=== PATIENT | male | born 1970 | race American Indian/Alaskan Native ===

== ENCOUNTER 2019-06-04 10:05 | Emergency (ER) | payer OTHER ==
[2019-06-04 10:14] VITALS: BP 137/79
[2019-06-04] MEDS ORDERED: KETOROLAC 60 MG/2 ML INJ IM ONE (11:52)
[2019-06-04] MEDS ORDERED: dexAMETHasone 20 MG/5 ML VIAL IM ONE (11:52)
--- NOTE | 2019-06-04 12:10 | Emergency Department Report ---
ED Back Pain/Injury HPI - General Chief Complaint: Back Pain/Injury Stated Complaint: SEVERE BACK PAIN Time Seen by Provider: 06/04/19 11:51 Source: patient Limitations: No Limitations - History of Present Illness Initial Comments: Mr. Correia is a 49 yo male with hx of severe lumbar ddd who presents with severe back pain. He had a bad injury in 2012. Since that time he was diagnosed with 3 herniated disks and facet arthropathy. He underwent laminectomy in 2013. He has been followed extensively by pain management physicians. He has underwent nerve blocks and epidural injections. He is currently being evaluated for a spinal stimulator. He is followed by pain physician in [facility]. He also has a new PCP at [facility] MD Zev Starr. He recently moved from [facility]. So he has recently restarted his medical treatment plan with new physicians. He moved from [place] to be close to his siblings. He was able to drive his car to the emergency department. The pain is worse with walking and certain movements. He denies bowel or bladder, ducts. He denies new leg weakness. One week ago he fell off a 4 foot ladder while performing housework. He fell and landed onto his back onto hard concrete. He did not have any new immediate pain at that time. More severe pain began several days ago. Complaint: back pain -: Gradual, days(s) (several) Similar Symptoms Previously: Yes Place: home Radiation: buttocks Severity: severe Severity scale (0 -10): 10 Quality: sharp, dull Consistency: constant Improves With: none Worsens With: movement, sitting upright, walking Context: fall Associated Symptoms: denies other symptoms - Related Data Previous Rx's Medication Instructions Recorded Last Taken Type Cyclobenzaprine [Flexeril] 10 mg PO TID PRN #15 tablet 06/04/19 Unknown Rx Ibuprofen [Motrin 800 MG tab] 800 mg PO Q8HR 5 Days #15 tablet 06/04/19 Unknown Rx Allergies Allergy/AdvReac Type Severity Reaction Status Date / Time No Known Allergies Allergy Unverified 06/04/19 10:10 ED Review of Systems ROS: Stated complaint: SEVERE BACK PAIN Other details as noted in HPI Comment: All other systems reviewed and negative Constitutional: denies: fever, malaise Cardiovascular: denies: chest pain Gastrointestinal: denies: abdominal pain, nausea, vomiting Musculoskeletal: back pain. denies: joint swelling, arthralgia, myalgia Neurological: denies: numbness, paresthesias ED Past Medical Hx - Past Medical History Previous Medical History?: Yes Additional medical history: Chronic back pain - Surgical History Past Surgical History?: Yes Additional Surgical History: Back, OU eye surgery, Thoracic surgery - Social History Smoking Status: Never Smoker Substance Use Type: Prescribed, Other - Medications Home Medications: Home Medications Medication Instructions Recorded Confirmed Last Taken Type Cyclobenzaprine [Flexeril] 10 mg PO TID PRN #15 tablet 06/04/19 Unknown Rx Ibuprofen [Motrin 800 MG tab] 800 mg PO Q8HR 5 Days #15 tablet 06/04/19 Unknown Rx ED Physical Exam - General Limitations: No Limitations General appearance: alert, in no apparent distress - Head Head exam: Present: atraumatic, normocephalic - Eye Eye exam: Present: normal appearance - ENT ENT exam: Present: mucous membranes moist - Neck Neck exam: Present: normal inspection, full ROM - Respiratory Respiratory exam: Present: normal lung sounds bilaterally. Absent: respiratory distress, wheezes, rales, rhonchi - Cardiovascular Cardiovascular Exam: Present: regular rate, normal rhythm, normal heart sounds. Absent: systolic murmur, diastolic murmur, rubs, gallop - GI/Abdominal GI/Abdominal exam: Present: soft, normal bowel sounds. Absent: distended, tenderness, guarding, rebound - Rectal Rectal exam: Present: deferred - Extremities Exam Extremities exam: Present: normal inspection - Back Exam Back exam: Present: normal inspection, full ROM. Absent: tenderness, CVA tenderness (R), CVA tenderness (L), muscle spasm, paraspinal tenderness, vertebral tenderness - Neurological Exam Neurological exam: Present: alert, oriented X3 - Psychiatric Psychiatric exam: Present: normal affect, normal mood - Skin Skin exam: Present: warm, dry, intact, normal color. Absent: rash ED Course Vital Signs 06/04/19 06/04/19 10:10 12:21 Temperature 98.4 F Pulse Rate 82 Respiratory 20 18 Rate Blood Pressure 137/79 O2 Sat by Pulse 96 Oximetry ED Medical Decision Making - Radiology Data Radiology results: image reviewed interpreted by me: Lumbar sacral views 3 views radiographs reviewed by moderately severe degenerative disease of the lumbar spine with osteophytes no fracture or subluxation - Medical Decision Making Mr. Correia presents with acute on chronic back pain after fall from 4 foot ladder 1 week ago. He is neurologically intact. He is ambulatory without difficulty. He has fluid study gait. He was able to maneuver in the chair transfer change positions with ease. He was able to drive to the emergency department. He denies bowel or bladder incontinence. He received ketorolac and dexamethasone. Further treatment with opioid medication in the emergency department was delayed because Mr. Correia did not have anyone to drive him home. Lumbar spine radiographs were obtained. No evidence of fracture or subluxation. According to physical exam I did not suspect severe back injury such as fracture or subluxation of the vertebrae. I have prescribed IObuprofen and Flexeril. He is currently taking Percocet which he is receiving. According to the [place] prescription monitoring database, Mr. Correia has received 8 prescriptions for controlled substances from several providers since the month of November. Critical care attestation.: If time is entered above; I have spent that time in minutes in the direct care of this critically ill patient, excluding procedure time. ED Disposition Clinical Impression: Acute exacerbation of chronic low back pain, Fall from ladder Disposition: DC-01 TO HOME OR SELFCARE Is pt being admited?: No Does the pt Need Aspirin: No Condition: Stable Instructions: Chronic Back Pain (ED) Prescriptions: Cyclobenzaprine [Flexeril] 10 mg PO TID PRN #15 tablet PRN Reason: Muscle Spasm Ibuprofen [Motrin 800 MG tab] 800 mg PO Q8HR 5 Days #15 tablet Referrals: PRIMARY CARE, [Referring] - DIANE
--- NOTE | 2019-06-04 12:45 | XRay Report ---
LUMBAR SPINE 3 VIEWS INDICATION: Back pain after fall. Acute on chronic low back pain. COMPARISON: No relevant prior imaging study available. FINDINGS: VERTEBRAE: No acute fracture. Normal alignment. DISC SPACES: There are mild to moderate discogenic degenerative changes, most significant at L3-L4. FACET JOINTS: Multilevel facet hypertrophy is noted. SOFT TISSUES: No significant abnormality. ADDITIONAL FINDINGS: No additional significant findings. IMPRESSION: 1. No acute findings. 2. Mild to moderate lumbar spondylosis. Signer Name: Sam Villalba MD Signed: 06/04/2019 12:40 PM Workstation Name: [id number]
== END 2019-06-04 13:10 | disposition home or self-care (01) ==
LOC: ED 10:05
DX: G89.29 Other chronic pain (principal); M54.5 Low back pain; W11.XXXA Fall on and from ladder, initial encounter; Y93.89 Activity, other specified; Y92.89 Other specified places as the place of occurrence of the external cause; Y99.8 Other external cause status
CPT/HCPCS: 72110; 96372; 99283; J1100; J1885

== ENCOUNTER 2019-06-12 13:24 | Emergency (ER) | payer OTHER ==
[2019-06-12] MEDS ORDERED: predniSONE 20 MG TAB PO ONE (17:59)
[2019-06-12] MEDS ORDERED: KETOROLAC 60 MG/2 ML INJ IM ONE (17:59)
[2019-06-12 18:18] VITALS: BP 120/64
--- NOTE | 2019-06-12 18:24 | Emergency Department Report ---
ED Back Pain/Injury HPI - General Chief Complaint: Back Pain/Injury Stated Complaint: EXTREME BACK PAIN/SPASMS Time Seen by Provider: 06/12/19 17:41 Source: patient Limitations: No Limitations - History of Present Illness Initial Comments: This is a 49-year-old male nontoxic, well nourished in appearance, no acute signs of distress presents to the ED with c/o of acute on chronic lower back pain. Patient was here a few days ago on 06/04/2019. Patient stated that pain has resolved and started again 2 days ago. Patient states has history of sciatica nerve pain which is similar symptoms as today. Patient states that pain radiates through to his right lower extremity. Patient denies any trauma. Denies any bladder or bowel instability. Patient denies any urinary symptoms. Denies any fever, chills, nausea, vomiting, headache, stiff neck, chest pain or shortness of breath. Patient denies any numbness or tingling. Denies any allergies. Denies significant past medical history. MD Complaint: back pain -: week(s) Similar Symptoms Previously: Yes Radiation: right leg Severity: mild Severity scale (0 -10): 8 Quality: aching Consistency: intermittent Improves With: immobilization, sitting upright Worsens With: movement, walking Context: while lifting, turning/twisting Associated Symptoms: denies other symptoms. denies: confusion, weakness, chest pain, numbness, difficulty walking, cough, difficulty urinating, diaphoresis, incontinence, fever/chills, constipation, headaches, abdominal pain, loss of appetite, malaise, nausea/vomiting, rash, seizure, shortness of breath, syncope - Related Data Previous Rx's Medication Instructions Recorded Last Taken Type Cyclobenzaprine [Flexeril] 10 mg PO TID PRN #15 tablet 06/04/19 Unknown Rx Ibuprofen [Motrin 800 MG tab] 800 mg PO Q8HR 5 Days #15 tablet 06/04/19 Unknown Rx Naproxen 500 mg PO Q12H PRN #20 tablet 06/12/19 Unknown Rx Allergies Allergy/AdvReac Type Severity Reaction Status Date / Time No Known Allergies Allergy Unverified 06/04/19 10:10 ED Review of Systems ROS: Stated complaint: EXTREME BACK PAIN/SPASMS Other details as noted in HPI Constitutional: denies: chills, fever Eyes: denies: eye pain, eye discharge, vision change ENT: denies: ear pain, throat pain Respiratory: denies: cough, shortness of breath, wheezing Cardiovascular: denies: chest pain, palpitations Endocrine: no symptoms reported Gastrointestinal: denies: abdominal pain, nausea, diarrhea Genitourinary: denies: urgency, dysuria Musculoskeletal: back pain. denies: joint swelling, arthralgia Skin: denies: rash, lesions Neurological: denies: headache, weakness, paresthesias Psychiatric: denies: anxiety, depression Hematological/Lymphatic: denies: easy bleeding, easy bruising ED Past Medical Hx - Past Medical History Previous Medical History?: Yes Additional medical history: Chronic back pain, takes Topiramate for back pain per the pain - Surgical History Past Surgical History?: Yes Additional Surgical History: Back, OU eye surgery, Thoracic surgery - Social History Smoking Status: Never Smoker Substance Use Type: None - Medications Home Medications: Home Medications Medication Instructions Recorded Confirmed Last Taken Type Cyclobenzaprine [Flexeril] 10 mg PO TID PRN #15 tablet 06/04/19 Unknown Rx Ibuprofen [Motrin 800 MG tab] 800 mg PO Q8HR 5 Days #15 tablet 06/04/19 Unknown Rx Naproxen 500 mg PO Q12H PRN #20 tablet 06/12/19 Unknown Rx ED Physical Exam - General Limitations: No Limitations General appearance: alert, in no apparent distress - Head Head exam: Present: atraumatic, normocephalic - Neck Neck exam: Present: normal inspection, full ROM. Absent: tenderness, meningismus, lymphadenopathy - GI/Abdominal GI/Abdominal exam: Present: soft. Absent: distended, tenderness - Extremities Exam Extremities exam: Present: normal inspection, full ROM, normal capillary refill. Absent: tenderness, calf tenderness - Back Exam Back exam: Present: normal inspection, full ROM, paraspinal tenderness (lumbar paraspinal). Absent: tenderness, CVA tenderness (R), CVA tenderness (L), muscle spasm, vertebral tenderness, rash noted - Expanded Back Exam Expanded Back exam: Absent: saddle anesthesia Back exam: Negative Straight Leg Raising: Left, Right - Neurological Exam Neurological exam: Present: alert, oriented X3, normal gait - Psychiatric Psychiatric exam: Present: normal affect, normal mood - Skin Skin exam: Present: warm, dry, intact, normal color. Absent: rash ED Course Vital Signs 06/12/19 06/12/19 14:11 18:16 Temperature 98.7 F 97.7 F Pulse Rate 79 64 Respiratory 18 18 Rate Blood Pressure 123/71 Blood Pressure 120/64 [Left] O2 Sat by Pulse 100 98 Oximetry - Reevaluation(s) Reevaluation #1: 06/12/19 18:30 Patient is speaking in full sentences with no signs of distress noted. ED Medical Decision Making - Medical Decision Making This is a 49-year-old male that presents with chronic back pain. Patient is stable was examined by me. There is no spinal tenderness. There is no cauda equina syndrome during examination. No bladder or bowel instability. X-rays has been reviewed that was taken on 06/04/2019 with no significant abnormalities. Patient received Toradol 60 mg IM and prednisone in the ED which stated that his symptoms has resolved and subsided. Patient is discharged with naproxen. Patient was referred to Follow-up with a orthopedic spine doctor in 3-5 days or if symptoms worsen and continue return to emergency room as soon as possible. At time of discharge, the patient does not seem toxic or ill in appearance. No acute signs of distress noted. Patient agrees to discharge treatment plan of care. No further questions noted by the patient. This chart is dictated with using [employer] Critical care attestation.: If time is entered above; I have spent that time in minutes in the direct care of this critically ill patient, excluding procedure time. ED Disposition Clinical Impression: Chronic lower back pain Disposition: DC-01 TO HOME OR SELFCARE Is pt being admited?: No Does the pt Need Aspirin: No Condition: Stable Instructions: Chronic Back Pain (ED) Additional Instructions: Follow-up with a orthopedic spine doctor in 3-5 days or if symptoms worsen and continue return to emergency room as soon as possible. Prescriptions: Naproxen 500 mg PO Q12H PRN #20 tablet PRN Reason: pain Referrals: JAIRON CHILDS MD [Primary Care Provider] - 3-5 Days STACIA TINAJERO MD [Staff Physician] - 3-5 Days [facility] [Outside] - 3-5 Days [facility] [Outside] - 3-5 Days Forms: Work/School Release Form(ED)
== END 2019-06-12 18:39 | disposition home or self-care (01) ==
LOC: ED 13:24
DX: M54.5 Low back pain (principal); G89.29 Other chronic pain; Z98.890 Other specified postprocedural states; Z79.899 Other long term (current) drug therapy
CPT/HCPCS: 96372; 99282; J1885; J7512